=== PATIENT | female | born 1965 | race African-American/Black ===

== ENCOUNTER 2019-06-21 14:07 | Inpatient (IN) | payer OTHER ==
[2019-06-21 15:01] VITALS: BMI 25.7
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
[2019-06-21] MEDS ORDERED: ACETAMINOPHEN 325 MG TABLET (FP) PO PRN (15:45)
[2019-06-21] MEDS ORDERED: P-EPHED 60MG/TRIPROLIDI 2.5MG TABLET PO PRN (15:45)
[2019-06-21] MEDS ORDERED: MENTHOL/PHENOL 1 EACH UD MM PRN (15:45)
[2019-06-21] MEDS ORDERED: NICOTINE POLACRILEX 2 MG GUM BC PRN (15:45)
[2019-06-21] MEDS ORDERED: MAGNESIUM CITRATE 300 ML BOTTLE PO PRN (15:45)
[2019-06-21] MEDS ORDERED: LOPERAMIDE HCL 2 MG CAPSULE PO PRN (15:45)
[2019-06-21] MEDS ORDERED: MAGNESIUM HYDROX 2400MG/30ML ORAL SUSPENSION 30 ML CUP PO PRN (15:45)
[2019-06-21] MEDS ORDERED: MAG HYDROX/AL HYDROX/SIMETH 30 ML UNIT-DOSE CUP PO PRN (15:45)
[2019-06-21] MEDS ORDERED: IBUPROFEN 400 MG TABLET (FP) PO PRN (15:45)
[2019-06-21] MEDS ORDERED: guaiFENesin 200 MG/10 ML 10 ML UNIT-DOSE CUPS PO PRN (15:45)
[2019-06-21] MEDS ORDERED: INDOMETHACIN 50 MG CAPSULE PO SCH (16:00)
[2019-06-21] MEDS: INDOMETHACIN 25 MG CAPSULE PO SCH (21:31)
[2019-06-21] MEDS: MIRTAZAPINE 30 MG TABLET (FP) PO SCH (21:31)
[2019-06-21] MEDS: THIAMINE HCL 100 MG TABLET (FP) PO SCH (21:31)
[2019-06-21] MEDS: NICOTINE 14 MG/24 HOURS TOPICAL PATCH TD SCH (21:32)
[2019-06-21] MEDS ORDERED: DIVALPROEX SODIUM 250 MG TABLET E.C. PO SCH (22:00)
[2019-06-22] MEDS: INDOMETHACIN 25 MG CAPSULE PO SCH ×3 (06:36→21:44)
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
[2019-06-22] MEDS: DULoxetine HCL 30 MG CAPSULE.DR PO SCH (10:18)
[2019-06-22] MEDS: PRENATAL VITAMINS W/ FOLIC ACID TABLET (FP) PO SCH (10:18)
[2019-06-22] MEDS: NICOTINE 14 MG/24 HOURS TOPICAL PATCH TD SCH (10:19)
[2019-06-22 10:28] LABS: HEMATOCRIT 38.4 % (32.4-45.2); HEMOGLOBIN 13.3 GM/dL (10.7-15.3); RBC 4.09 M/mm3 (3.60-5.2)
[2019-06-22 10:31] LABS: MCH 32.6 pg (25.7-33.7); MCHC 34.7 g/dl (32.0-36.0); MEAN CELL VOLUME 93.9 fl (80-96); MEAN PLT VOLUME 9.3 fl (7.5-11.1); PLATELET COUNT 249 K/MM3 (134-434); RDW 14.9 % (11.6-15.6); WHITE BLOOD COUNT 5.3 K/mm3 (4.0-10.0)
[2019-06-22 10:52] LABS: ALBUMIN 3.7 g/dl (3.4-5.0); BILIRUBIN,TOTAL 0.6 mg/dL (0.2-1); BLOOD UREA NITROGEN 15.3 mg/dL (7-18); CALCIUM 9.2 mg/dL (8.5-10.1); CREATININE 1.3 mg/dL (0.55-1.3); POTASSIUM 3.5 mmol/L (3.5-5.1); TOT PROT 7.6 g/dl (6.4-8.2)
[2019-06-22 14:57] LABS: PH,URINE 5.5 (5.0-8.0); URINE APPEARANCE TURBID; URINE BILIRUBIN 1+ (NEGATIVE); URINE COLOR DK YELLOW; URINE GLUCOSE (UA) NEGATIVE (NEGATIVE); URINE KETONE 1+ (NEGATIVE); URINE LEUK ESTERASE NEGATIVE (NEGATIVE); URINE NITRITE NEGATIVE (NEGATIVE); URINE PROTEIN TRACE (NEGATIVE)
[2019-06-22] MEDS ORDERED: MIRTAZAPINE 15 MG TABLET (FP) ONE (19:35)
[2019-06-22] MEDS: DIVALPROEX SODIUM 250 MG TABLET E.C. PO SCH (21:42)
[2019-06-22] MEDS: MIRTAZAPINE 30 MG TABLET (FP) PO SCH (21:42)
[2019-06-22] MEDS: THIAMINE HCL 100 MG TABLET (FP) PO SCH (21:43)
[2019-06-22] MEDS: OLANZapine 10 MG TABLET PO SCH (21:43)
[2019-06-22] MEDS ORDERED: PT OWN MED DRAWER 7, Y5N ONE ×2 (21:44→23:25)
[2019-06-23] MEDS ORDERED: PT OWN MED DRAWER 7, Y5N ONE (06:34)
[2019-06-23] MEDS: INDOMETHACIN 25 MG CAPSULE PO SCH ×3 (06:54→21:36)
[2019-06-23] MEDS: PRENATAL VITAMINS W/ FOLIC ACID TABLET (FP) PO SCH (09:35)
[2019-06-23] MEDS: DULoxetine HCL 30 MG CAPSULE.DR PO SCH (09:35)
[2019-06-23] MEDS: NICOTINE 14 MG/24 HOURS TOPICAL PATCH TD SCH (09:36)
[2019-06-23] MEDS: BACITRACIN 15 GM TUBE TOPICAL OINTMENT TP SCH ×2 (12:15→21:35)
[2019-06-23] MEDS ORDERED: MIRTAZAPINE 15 MG TABLET (FP) ONE (19:36)
[2019-06-23] MEDS: DIVALPROEX SODIUM 250 MG TABLET E.C. PO SCH (21:35)
[2019-06-23] MEDS: OLANZapine 10 MG TABLET PO SCH (21:35)
[2019-06-23] MEDS: THIAMINE HCL 100 MG TABLET (FP) PO SCH (21:36)
[2019-06-23] MEDS: MIRTAZAPINE 30 MG TABLET (FP) PO SCH (21:36)
[2019-06-24] MEDS: INDOMETHACIN 25 MG CAPSULE PO SCH ×3 (06:45→21:14)
[2019-06-24] MEDS ORDERED: PT OWN MED DRAWER 7, Y5N ONE ×2 (08:56→13:18)
[2019-06-24] MEDS: BACITRACIN 15 GM TUBE TOPICAL OINTMENT TP SCH ×2 (09:10→21:12)
[2019-06-24] MEDS: PRENATAL VITAMINS W/ FOLIC ACID TABLET (FP) PO SCH (09:10)
[2019-06-24] MEDS: DULoxetine HCL 30 MG CAPSULE.DR PO SCH (09:10)
[2019-06-24] MEDS: NICOTINE 14 MG/24 HOURS TOPICAL PATCH TD SCH (09:12)
[2019-06-24] MEDS ORDERED: MIRTAZAPINE 15 MG TABLET (FP) ONE (19:36)
[2019-06-24] MEDS: DIVALPROEX SODIUM 250 MG TABLET E.C. PO SCH (21:12)
[2019-06-24] MEDS: MIRTAZAPINE 30 MG TABLET (FP) PO SCH (21:13)
[2019-06-24] MEDS: OLANZapine 10 MG TABLET PO SCH (21:14)
[2019-06-24] MEDS: THIAMINE HCL 100 MG TABLET (FP) PO SCH (21:15)
[2019-06-25] MEDS: INDOMETHACIN 25 MG CAPSULE PO SCH ×3 (07:13→21:36)
[2019-06-25] MEDS: PRENATAL VITAMINS W/ FOLIC ACID TABLET (FP) PO SCH (10:46)
[2019-06-25] MEDS: NICOTINE 14 MG/24 HOURS TOPICAL PATCH TD SCH (10:46)
[2019-06-25] MEDS: DULoxetine HCL 30 MG CAPSULE.DR PO SCH (10:46)
[2019-06-25] MEDS: BACITRACIN 15 GM TUBE TOPICAL OINTMENT TP SCH ×2 (10:46→21:36)
[2019-06-25] MEDS ORDERED: PT OWN MED DRAWER 7, Y5N ONE ×2 (13:11→19:55)
[2019-06-25] MEDS: ALBUTEROL SO4 8 GM HFA INHALER IH PRN (16:33)
[2019-06-25] MEDS ORDERED: MIRTAZAPINE 15 MG TABLET (FP) ONE (19:55)
[2019-06-25] MEDS: THIAMINE HCL 100 MG TABLET (FP) PO SCH (21:35)
[2019-06-25] MEDS: DIVALPROEX SODIUM 250 MG TABLET E.C. PO SCH (21:36)
[2019-06-25] MEDS: OLANZapine 10 MG TABLET PO SCH (21:36)
[2019-06-25] MEDS: MIRTAZAPINE 30 MG TABLET (FP) PO SCH (21:37)
[2019-06-26] MEDS ORDERED: PT OWN MED DRAWER 7, Y5N ONE ×3 (06:40→13:26)
[2019-06-26] MEDS: INDOMETHACIN 25 MG CAPSULE PO SCH ×3 (07:08→21:21)
[2019-06-26] MEDS: BACITRACIN 15 GM TUBE TOPICAL OINTMENT TP SCH ×2 (10:36→21:22)
[2019-06-26] MEDS: PRENATAL VITAMINS W/ FOLIC ACID TABLET (FP) PO SCH (10:36)
[2019-06-26] MEDS: NICOTINE 14 MG/24 HOURS TOPICAL PATCH TD SCH (10:36)
[2019-06-26] MEDS: LORATADINE 10 MG TABLET PO SCH (10:37)
[2019-06-26] MEDS: DULoxetine HCL 30 MG CAPSULE.DR PO SCH (10:37)
[2019-06-26] MEDS: ALBUTEROL SO4 8 GM HFA INHALER IH PRN (10:38)
[2019-06-26] MEDS ORDERED: COLLOIDAL OATMEAL 1 BAR EACH TP PRN (11:30)
[2019-06-26] MEDS: MIRTAZAPINE 30 MG TABLET (FP) PO SCH (21:21)
[2019-06-26] MEDS: DIVALPROEX SODIUM 250 MG TABLET E.C. PO SCH (21:21)
[2019-06-26] MEDS: THIAMINE HCL 100 MG TABLET (FP) PO SCH (21:21)
[2019-06-26] MEDS: OLANZapine 10 MG TABLET PO SCH (21:21)
[2019-06-27] MEDS ORDERED: PT OWN MED DRAWER 7, Y5N ONE ×2 (03:22→08:54)
[2019-06-27] MEDS: INDOMETHACIN 25 MG CAPSULE PO SCH ×3 (06:57→21:40)
[2019-06-27] MEDS: LORATADINE 10 MG TABLET PO SCH (10:10)
[2019-06-27] MEDS: BACITRACIN 15 GM TUBE TOPICAL OINTMENT TP SCH ×2 (10:10→21:42)
[2019-06-27] MEDS: NICOTINE 14 MG/24 HOURS TOPICAL PATCH TD SCH (10:11)
[2019-06-27] MEDS: DULoxetine HCL 30 MG CAPSULE.DR PO SCH (10:11)
[2019-06-27] MEDS: PRENATAL VITAMINS W/ FOLIC ACID TABLET (FP) PO SCH (10:11)
[2019-06-27] MEDS: THIAMINE HCL 100 MG TABLET (FP) PO SCH (21:40)
[2019-06-27] MEDS: OLANZapine 10 MG TABLET PO SCH (21:40)
[2019-06-27] MEDS: MIRTAZAPINE 30 MG TABLET (FP) PO SCH (21:40)
[2019-06-27] MEDS: DIVALPROEX SODIUM 250 MG TABLET E.C. PO SCH (21:40)
[2019-06-28] MEDS ORDERED: LORATADINE 10 MG TABLET PO SCH (05:00)
[2019-06-28] MEDS: INDOMETHACIN 25 MG CAPSULE PO SCH ×3 (06:26→21:45)
[2019-06-28] MEDS ORDERED: PT OWN MED DRAWER 7, Y5N ONE (08:32)
[2019-06-28] MEDS: DULoxetine HCL 30 MG CAPSULE.DR PO SCH (10:24)
[2019-06-28] MEDS: PRENATAL VITAMINS W/ FOLIC ACID TABLET (FP) PO SCH (10:24)
[2019-06-28] MEDS: NICOTINE 14 MG/24 HOURS TOPICAL PATCH TD SCH (10:24)
[2019-06-28] MEDS: BACITRACIN 15 GM TUBE TOPICAL OINTMENT TP SCH ×2 (10:24→21:46)
[2019-06-28] MEDS: ALBUTEROL SO4 8 GM HFA INHALER IH PRN (13:42)
[2019-06-28] MEDS: LORATADINE 10 MG TABLET PO SCH (16:34)
[2019-06-28] MEDS: MIRTAZAPINE 30 MG TABLET (FP) PO SCH (21:45)
[2019-06-28] MEDS: THIAMINE HCL 100 MG TABLET (FP) PO SCH (21:45)
[2019-06-28] MEDS: OLANZapine 10 MG TABLET PO SCH (21:45)
[2019-06-28] MEDS: DIVALPROEX SODIUM 250 MG TABLET E.C. PO SCH (21:45)
[2019-06-29] MEDS: INDOMETHACIN 25 MG CAPSULE PO SCH ×3 (06:46→21:30)
[2019-06-29] MEDS: DULoxetine HCL 30 MG CAPSULE.DR PO SCH (10:25)
[2019-06-29] MEDS: BACITRACIN 15 GM TUBE TOPICAL OINTMENT TP SCH ×2 (10:25→21:31)
[2019-06-29] MEDS: PRENATAL VITAMINS W/ FOLIC ACID TABLET (FP) PO SCH (10:26)
[2019-06-29] MEDS: NICOTINE 14 MG/24 HOURS TOPICAL PATCH TD SCH (10:26)
[2019-06-29] MEDS ORDERED: PT OWN MED DRAWER 7, Y5N ONE (10:27)
[2019-06-29] MEDS: ALBUTEROL SO4 8 GM HFA INHALER IH PRN (13:25)
[2019-06-29] MEDS: LORATADINE 10 MG TABLET PO SCH (17:08)
[2019-06-29] MEDS: OLANZapine 10 MG TABLET PO SCH (21:29)
[2019-06-29] MEDS: MIRTAZAPINE 30 MG TABLET (FP) PO SCH (21:29)
[2019-06-29] MEDS: DIVALPROEX SODIUM 250 MG TABLET E.C. PO SCH (21:29)
[2019-06-29] MEDS: THIAMINE HCL 100 MG TABLET (FP) PO SCH (21:30)
[2019-06-30] MEDS: INDOMETHACIN 25 MG CAPSULE PO SCH ×3 (07:06→21:46)
[2019-06-30] MEDS: NICOTINE 14 MG/24 HOURS TOPICAL PATCH TD SCH (10:36)
[2019-06-30] MEDS: DULoxetine HCL 30 MG CAPSULE.DR PO SCH (10:36)
[2019-06-30] MEDS: BACITRACIN 15 GM TUBE TOPICAL OINTMENT TP SCH ×2 (10:36→21:47)
[2019-06-30] MEDS: PRENATAL VITAMINS W/ FOLIC ACID TABLET (FP) PO SCH (10:36)
[2019-06-30] MEDS ORDERED: PT OWN MED DRAWER 7, Y5N ONE (10:39)
[2019-06-30] MEDS: LORATADINE 10 MG TABLET PO SCH (18:42)
[2019-06-30] MEDS: ALBUTEROL SO4 8 GM HFA INHALER IH PRN (18:42)
[2019-06-30] MEDS: THIAMINE HCL 100 MG TABLET (FP) PO SCH (21:46)
[2019-06-30] MEDS: OLANZapine 10 MG TABLET PO SCH (21:46)
[2019-06-30] MEDS: DIVALPROEX SODIUM 250 MG TABLET E.C. PO SCH (21:46)
[2019-06-30] MEDS: MIRTAZAPINE 30 MG TABLET (FP) PO SCH (21:46)
[2019-07-01] MEDS: INDOMETHACIN 25 MG CAPSULE PO SCH ×3 (06:51→21:39)
[2019-07-01] MEDS ORDERED: PT OWN MED DRAWER 7, Y5N ONE (08:41)
[2019-07-01] MEDS: NICOTINE 14 MG/24 HOURS TOPICAL PATCH TD SCH (10:34)
[2019-07-01] MEDS: PRENATAL VITAMINS W/ FOLIC ACID TABLET (FP) PO SCH (10:34)
[2019-07-01] MEDS: DULoxetine HCL 30 MG CAPSULE.DR PO SCH (10:34)
[2019-07-01] MEDS: BACITRACIN 15 GM TUBE TOPICAL OINTMENT TP SCH ×2 (10:34→21:39)
[2019-07-01] MEDS: ALBUTEROL SO4 8 GM HFA INHALER IH PRN (12:44)
[2019-07-01] MEDS: LORATADINE 10 MG TABLET PO SCH (16:56)
[2019-07-01] MEDS: DIVALPROEX SODIUM 250 MG TABLET E.C. PO SCH (21:38)
[2019-07-01] MEDS: MIRTAZAPINE 30 MG TABLET (FP) PO SCH (21:38)
[2019-07-01] MEDS: MELATONIN 5 MG TABLETS PO PRN (21:38)
[2019-07-01] MEDS: OLANZapine 10 MG TABLET PO SCH (21:38)
[2019-07-01] MEDS: THIAMINE HCL 100 MG TABLET (FP) PO SCH (21:38)
[2019-07-02] MEDS: INDOMETHACIN 25 MG CAPSULE PO SCH ×3 (08:01→21:38)
[2019-07-02] MEDS ORDERED: PT OWN MED DRAWER 7, Y5N ONE (08:57)
[2019-07-02] MEDS: DULoxetine HCL 30 MG CAPSULE.DR PO SCH (10:06)
[2019-07-02] MEDS: BACITRACIN 15 GM TUBE TOPICAL OINTMENT TP SCH (10:07)
[2019-07-02] MEDS: NICOTINE 14 MG/24 HOURS TOPICAL PATCH TD SCH (10:07)
[2019-07-02] MEDS: PRENATAL VITAMINS W/ FOLIC ACID TABLET (FP) PO SCH (10:07)
[2019-07-02] MEDS ORDERED: INDOMETHACIN 25 MG CAPSULE PO ONE (11:35)
[2019-07-02] MEDS: ALBUTEROL SO4 8 GM HFA INHALER IH PRN (14:39)
[2019-07-02] MEDS: LORATADINE 10 MG TABLET PO SCH (16:51)
[2019-07-02] MEDS: THIAMINE HCL 100 MG TABLET (FP) PO SCH (21:37)
[2019-07-02] MEDS: OLANZapine 10 MG TABLET PO SCH (21:38)
[2019-07-02] MEDS: MIRTAZAPINE 30 MG TABLET (FP) PO SCH (21:38)
[2019-07-02] MEDS: DIVALPROEX SODIUM 250 MG TABLET E.C. PO SCH (21:38)
[2019-07-03] MEDS: INDOMETHACIN 25 MG CAPSULE PO SCH ×3 (06:10→21:25)
[2019-07-03] MEDS: NICOTINE 14 MG/24 HOURS TOPICAL PATCH TD SCH (10:31)
[2019-07-03] MEDS: DULoxetine HCL 30 MG CAPSULE.DR PO SCH (10:31)
[2019-07-03] MEDS: PRENATAL VITAMINS W/ FOLIC ACID TABLET (FP) PO SCH (10:31)
[2019-07-03] MEDS: ALBUTEROL SO4 8 GM HFA INHALER IH PRN (10:32)
[2019-07-03] MEDS: LORATADINE 10 MG TABLET PO SCH (17:35)
[2019-07-03] MEDS: OLANZapine 10 MG TABLET PO SCH (21:25)
[2019-07-03] MEDS: MIRTAZAPINE 30 MG TABLET (FP) PO SCH (21:25)
[2019-07-03] MEDS: DIVALPROEX SODIUM 250 MG TABLET E.C. PO SCH (21:25)
[2019-07-03] MEDS: THIAMINE HCL 100 MG TABLET (FP) PO SCH (21:25)
[2019-07-03] MEDS: MELATONIN 5 MG TABLETS PO PRN (21:25)
[2019-07-04] MEDS: INDOMETHACIN 25 MG CAPSULE PO SCH ×3 (06:46→21:28)
[2019-07-04] MEDS: PRENATAL VITAMINS W/ FOLIC ACID TABLET (FP) PO SCH (10:30)
[2019-07-04] MEDS: NICOTINE 14 MG/24 HOURS TOPICAL PATCH TD SCH (10:30)
[2019-07-04] MEDS: DULoxetine HCL 30 MG CAPSULE.DR PO SCH (10:30)
--- NOTE | 2019-07-04 11:28 | DS ---
[facility] Rehab Discharge Summary - [facility] Rehab Discharge Summary Admission Date: 06/21/19 Discharge Date: 07/04/19 - History Present History: Alcohol dependence, Cocaine dependence Additional Comments: Pt is a 53 y/o female admitted to rehab and scheduled to discharge on 07/05/19. Pt has a hx of alcohol and cocaine dependence and PMhx of Asthma and arthritis, Psych hx of Bipolar disorder on meds. Pt [facility] [address] [facility] [place] [place] where she is connected to CD aftercare, mental and primary care management. Pertinent Past History: Asthma Arthritis Bipolar disorder - Discharge Physical Exam Vital Signs: Vital Signs Temperature 97.9 F 07/04/19 07:35 Pulse Rate 99 H 07/04/19 07:35 Respiratory Rate 18 07/04/19 07:35 Blood Pressure 127/75 07/04/19 07:35 O2 Sat by Pulse Oximetry (%) Alert o x 3, denies s/h/i. Cardiac:s1 s2,rrr Lungs:cta,andrew. Abdomen:soft,+bs,nt,nd Extremities/Skin:Full ROM,No e/c/c; Ambulating with steady gait; Skin intact. Pertinent Admission Physical Exam Findings: Laboratory Tests 06/21/19 06/22/19 06/22/19 15:24 08:30 08:30 WBC 5.3 RBC 4.09 Hgb 13.3 Hct 38.4 MCV 93.9 MCH 32.6 MCHC 34.7 RDW 14.9 Plt Count 249 MPV 9.3 Sodium 142 Potassium 3.5 Chloride 106 Carbon Dioxide 26 Anion Gap 10 BUN 15.3 Creatinine 1.3 Est GFR (CKD-EPI)AfAm 54.24 Est GFR (CKD-EPI)NonAf 46.80 POC Glucometer Random Glucose 142 H Calcium 9.2 Total Bilirubin 0.6 AST 51 H ALT 29 Alkaline Phosphatase 113 Total Protein 7.6 Albumin 3.7 Urine Color Urine Appearance Urine pH Ur Specific [place] Urine Protein Urine Glucose (UA) Urine Ketones Urine Blood Urine Nitrite Urine Bilirubin Urine Urobilinogen Ur Leukocyte Esterase POC Urine HCG, Qual Negative Valproic Acid RPR Titer Hep C Ab Diagnostic HIV 1&2 Ag/Ab, 4th Gen HIV 1&2 Antibody Screen HIV P24 Antigen 06/22/19 06/22/19 06/22/19 08:30 08:30 08:30 WBC RBC Hgb Hct MCV MCH MCHC RDW Plt Count MPV Sodium Potassium Chloride Carbon Dioxide Anion Gap BUN Creatinine Est GFR (CKD-EPI)AfAm Est GFR (CKD-EPI)NonAf POC Glucometer Random Glucose Calcium Total Bilirubin AST ALT Alkaline Phosphatase Total Protein Albumin Urine Color Urine Appearance Urine pH Ur Specific [place] Urine Protein Urine Glucose (UA) Urine Ketones Urine Blood Urine Nitrite Urine Bilirubin Urine Urobilinogen Ur Leukocyte Esterase POC Urine HCG, Qual Valproic Acid RPR Titer Nonreactive Hep C Ab Diagnostic <0.1 HIV 1&2 Ag/Ab, 4th Gen HIV 1&2 Antibody Screen Cancelled HIV P24 Antigen Cancelled 06/22/19 06/22/19 06/24/19 10:00 11:40 07:45 WBC RBC Hgb Hct MCV MCH MCHC RDW Plt Count MPV Sodium Potassium Chloride Carbon Dioxide Anion Gap BUN Creatinine Est GFR (CKD-EPI)AfAm Est GFR (CKD-EPI)NonAf POC Glucometer Random Glucose Calcium Total Bilirubin AST ALT Alkaline Phosphatase Total Protein Albumin Urine Color Dk yellow Urine Appearance Turbid Urine pH 5.5 Ur Specific [place] 1.027 Urine Protein Trace Urine Glucose (UA) Negative Urine Ketones 1+ H Urine Blood Negative Urine Nitrite Negative Urine Bilirubin 1+ H Urine Urobilinogen 1.0 Ur Leukocyte Esterase Negative POC Urine HCG, Qual Valproic Acid 60.8 RPR Titer Hep C Ab Diagnostic HIV 1&2 Ag/Ab, 4th Gen Non reactive HIV 1&2 Antibody Screen HIV P24 Antigen 06/26/19 06/27/19 06/29/19 07:07 06:56 06:45 WBC RBC Hgb Hct MCV MCH MCHC RDW Plt Count MPV Sodium Potassium Chloride Carbon Dioxide Anion Gap BUN Creatinine Est GFR (CKD-EPI)AfAm Est GFR (CKD-EPI)NonAf POC Glucometer 121 107 112 Random Glucose Calcium Total Bilirubin AST ALT Alkaline Phosphatase Total Protein Albumin Urine Color Urine Appearance Urine pH Ur Specific [place] Urine Protein Urine Glucose (UA) Urine Ketones Urine Blood Urine Nitrite Urine Bilirubin Urine Urobilinogen Ur Leukocyte Esterase POC Urine HCG, Qual Valproic Acid RPR Titer Hep C Ab Diagnostic HIV 1&2 Ag/Ab, 4th Gen HIV 1&2 Antibody Screen HIV P24 Antigen 06/30/19 07:37 WBC RBC Hgb Hct MCV MCH MCHC RDW Plt Count MPV Sodium Potassium Chloride Carbon Dioxide Anion Gap BUN Creatinine Est GFR (CKD-EPI)AfAm Est GFR (CKD-EPI)NonAf POC Glucometer 106 Random Glucose Calcium Total Bilirubin AST ALT Alkaline Phosphatase Total Protein Albumin Urine Color Urine Appearance Urine pH Ur Specific [place] Urine Protein Urine Glucose (UA) Urine Ketones Urine Blood Urine Nitrite Urine Bilirubin Urine Urobilinogen Ur Leukocyte Esterase POC Urine HCG, Qual Valproic Acid RPR Titer Hep C Ab Diagnostic HIV 1&2 Ag/Ab, 4th Gen HIV 1&2 Antibody Screen HIV P24 Antigen Status Unchanged - Treatment Discharge Condition: Discharge condition good Hospital Course: Rehabilitated safely and tolerated well. Accepted aftercare referral. - Medication Discharge Medications: Ambulatory Orders Divalproex Sodium [Depakote] 250 mg PO HS 06/21/19 Divalproex [Depakote -] 750 mg PO HS #90 tablet.ec 07/04/19 Duloxetine HCl [Cymbalta] 30 mg PO DAILY #30 capsule. 07/04/19 Indomethacin [Indocin -] 50 mg PO TID #42 capsule 07/04/19 Mirtazapine [Remeron -] 30 mg PO HS #30 tablet 07/04/19 Olanzapine [Zyprexa] 20 mg PO HS #30 tablet 07/04/19 - Medication-Assisted Treatment (MAT) Medication-Assisted Treatment (MAT): No - Discharge Instructions Diet, activity, other medical instructions: Diet:Low salt diet Activity: OOB,ad colleen Other medical instructions:Follow up with CD aftercare/Medical/Mental health management at [facility] as scheduled within one week after discharge. - Diagnosis (1) Alcohol dependence Current Visit: Yes Status: Chronic Qualifiers: Substance use status: uncomplicated Qualified Code(s): F10.20 - Alcohol dependence, uncomplicated (2) Cocaine dependence Current Visit: Yes Status: Chronic Qualifiers: Substance use status: uncomplicated Qualified Code(s): F14.20 - Cocaine dependence, uncomplicated (3) Arthritis Current Visit: Yes Status: Chronic (4) Schizophrenia Current Visit: Yes Status: Chronic Qualifiers: Schizophrenia type: unspecified Qualified Code(s): F20.9 - Schizophrenia, unspecified (5) Schizoaffective disorder Current Visit: Yes Status: Suspected Qualifiers: Schizoaffective disorder type: unspecified Qualified Code(s): F25.9 - Schizoaffective disorder, unspecified - Follow-up Referral Minutes to complete discharge: 20 - AMA Did Patient Leave Against Medical Advice: No
--- NOTE | 2019-07-04 12:06 | PN ---
[facility] Progress Note Note: Patient is scheduled for discharge tomorrow. Scripts for 30 days supply of medications(Depakote 750 mg/hs, Zyprexa 20 mg/hs, Cymbalta 30 mg/day, Remeron 30 mg/hs) will be electronically transmitted to [facility] at [address] [place] [address]
[2019-07-04] MEDS: LORATADINE 10 MG TABLET PO SCH (16:54)
[2019-07-04] MEDS: MIRTAZAPINE 30 MG TABLET (FP) PO SCH (21:28)
[2019-07-04] MEDS: OLANZapine 10 MG TABLET PO SCH (21:28)
[2019-07-04] MEDS: THIAMINE HCL 100 MG TABLET (FP) PO SCH (21:28)
[2019-07-04] MEDS: DIVALPROEX SODIUM 250 MG TABLET E.C. PO SCH (21:28)
[2019-07-05] MEDS: INDOMETHACIN 25 MG CAPSULE PO SCH (05:49)
[2019-07-05 07:10] VITALS: BP 148/76; PULSE 98; TEMP 97.5
[2019-07-05] MEDS: DULoxetine HCL 30 MG CAPSULE.DR PO SCH (09:21)
[2019-07-05] MEDS: PRENATAL VITAMINS W/ FOLIC ACID TABLET (FP) PO SCH (09:21)
[2019-07-05] MEDS: NICOTINE 14 MG/24 HOURS TOPICAL PATCH TD SCH (09:22)
== END 2019-07-05 09:25 | disposition home or self-care (01) | DRG 772 ==
LOC: YASAS 14:07 → Y3E 15:50
PROVIDERS: ADMIT Neuromusculoskeletal Medicine & OMM; ATTEND Neuromusculoskeletal Medicine & OMM
PROC: HZ42ZZZ Group Counseling for Substance Abuse Treatment, Cognitive-Behavioral (ICD-10-PCS; principal; 2019-06-21)
DX: F14.20 Cocaine dependence, uncomplicated (principal); F17.210 Nicotine dependence, cigarettes, uncomplicated; F25.9 Schizoaffective disorder, unspecified; F31.9 Bipolar disorder, unspecified; M19.90 Unspecified osteoarthritis, unspecified site; J45.909 Unspecified asthma, uncomplicated; Z91.5 Personal history of self-harm
CPT/HCPCS: 36415; 80053; 80164; 81003; 81025; 82962; 85027; 86480; 86593; 86803; 87389